=== PATIENT | male | born 1995 | race Two or more races ===

== ENCOUNTER 2016-06-14 17:26 | Observation (INO) | payer MEDICAID ==
[~2016-06-14] VITALS: Ht 165.1 cm; Wt 93.4 kg
[2016-06-14 18:50] LABS: Basophils # (auto) 0 uL; Basophils % (auto) 0.5 % (0.0-2.0); DEFINITIVE VIEW TRANSMISSION; Eosinophils # (auto) 0.1 uL; Eosinophils % (auto) 1.2 % (0.0-7.0); Hematocrit 40.9 % (41.0-53.0); Hemoglobin 12.5 g/dL (13.5-17.5); Lymphocytes # (auto) 2.2 uL; Lymphocytes % (auto) 26.6 % (10.0-50.0); Mean Corpuscular Hemoglobin 19.2 pg (28.0-32.0); Mean Corpuscular Hgb Conc. 30.6 g/dL (32.0-36.0); Mean Corpuscular Volume 62.7 fL (80.0-100.0); Mean Platelet Volume 7.9 fL (7.4-10.4); Monocytes # (auto) 0.5 uL; Monocytes % (auto) 6.1 % (0.0-12.0); Neutrophils # (auto) 5.4 uL; Neutrophils % (auto) 65.6 % (37.0-80.0); Platelet Count (auto) 300 10^3/uL (140-450); Red Cell Distribution Width 16.1 % (11.6-16.0); White Blood Cell 8.3 10^3/uL (4.4-10.8)
[2016-06-14 19:00] LABS: Albumin 4.2 g/dL (3.4-5.0); BUN/Creatinine Ratio 10.5; Calcium 8.8 mg/dL (8.5-10.1); Potassium 3.9 mmol/L (3.5-5.1)
[2016-06-14 19:10] LABS: Bilirubin, Total 0.6 mg/dL (0.2-1.0)
[2016-06-14 20:33] LABS: Platelet Estimate Adequate
[2016-06-14 20:34] LABS: Hypochromia Moderate; Microcytosis Marked; Ovalocytes FEW; Tear Drop Cells FEW
[2016-06-14] MEDS ORDERED: SODIUM CHLORIDE 0.9% 1,000 ML IV ONE ×2 (21:30)
[2016-06-15] MEDS ORDERED: SODIUM CHLORIDE 0.9% 1,000 ML IV ONE (07:30)
[2016-06-15] MEDS ORDERED: ONDANSETRON HCL 4 MG/2 ML VIAL IV ONE (07:45)
[2016-06-15 09:46] LABS: Urine RBC <1 /hpf (0 - 3)
[2016-06-15 09:47] LABS: Urine Bilirubin Negative (Negative); Urine Blood Negative /uL (Negative); Urine Color Yellow (Yellow); Urine Glucose Normal (Normal); Urine Ketone Negative (Negative); Urine Nitrite Negative (Negative); Urine Urobilinogen Normal (Negative)
[2016-06-16 11:25] VITALS: BP 131/87
== END 2016-06-16 11:40 | disposition short-term general hospital (02) | DRG 751 ==
LOC: ER 17:29 → OVERFLOW 19:54 → ER 06-16 11:40
PROVIDERS: ADMIT Emergency Medicine; ATTEND Emergency Medicine
DX: F32.1 Major depressive disorder, single episode, moderate (principal); R45.851 Suicidal ideations
CPT/HCPCS: 36415; 70450; 80053; 80329; 81001; 82962; 85025; 96361; 96374; 99285; G0378; G0434; J2405; J7030

== ENCOUNTER 2023-09-16 19:38 | Emergency (ER) | payer SELFPAY ==
[~2023-09-16] VITALS: Ht 167.6 cm; Wt 95.7 kg
[2023-09-16] MEDS: BENZOCAINE (DENTAL) 20 % SPRAY 60ML MT ONE (21:47)
[2023-09-16 22:00] VITALS: BP 139/86; PULSE 88; RESP 18; TEMP 97.6; O2SAT 98
== END 2023-09-16 22:04 | disposition home or self-care (01) ==
LOC: ER 19:38
DX: S02.5XXA Fracture of tooth (traumatic), initial encounter for closed fracture (principal); S63.697A Other sprain of left little finger, initial encounter; S60.511A Abrasion of right hand, initial encounter; S00.511A Abrasion of lip, initial encounter; J45.909 Unspecified asthma, uncomplicated; F32.9 Major depressive disorder, single episode, unspecified; X58.XXXA Exposure to other specified factors, initial encounter; Y93.89 Activity, other specified; Y92.89 Other specified places as the place of occurrence of the external cause; Y99.8 Other external cause status
CPT/HCPCS: 73130